=== PATIENT | male | born 1970 | race Two or more races ===

== ENCOUNTER 2017-10-26 08:04 | Emergency (ER) | payer SELFPAY ==
[2017-10-26] MEDS ORDERED: IBUPROFEN 800 MG TABLET PO ONE (08:27)
[2017-10-26] MEDS ORDERED: NORMAL SALINE 1000 ML 1,000 ML IV ONE (08:27)
[2017-10-26 08:45] LABS: ABSOLUTE BASOPHILS # (AUTO) 0.1 10^3/uL (0.0-0.2); ABSOLUTE EOSINOPHILS # (AUTO) 0.1 10^3/uL (0.0-0.6); ABSOLUTE LYMPHOCYTES (AUTO) 2.5 10^3/uL (0.5-4.7); ABSOLUTE MONOCYTES (AUTO) 0.6 10^3/uL (0.1-1.4); ABSOLUTE NEUT (AUTO) 6.1 10^3/uL (1.7-8.2); BASOPHILS % (AUTO) 1.2 % (0-2); EOSINOPHILS % (AUTO) 1.1 % (0-6); HEMATOCRIT 41.9 % (37.9-51.0); HEMOGLOBIN 14.2 g/dL (13.5-17.0); LYMPHOCYTES % (AUTO) 26.7 % (13-45); MEAN CORPUSCULAR HEMOGLOBIN 30.3 pg (27.0-33.4); MEAN CORPUSCULAR HGB CONC 33.8 g/dL (32.0-36.0); MEAN CORPUSCULAR VOLUME 90 fl (80-97); MONOCYTES % (AUTO) 6.5 % (3-13); PLATELET COUNT 463 10^3/uL (150-450); RED BLOOD COUNT 4.68 10^6/uL (4.35-5.55); RED CELL DISTRIBUTION WIDTH 16.5 % (11.5-14.0); SEGMENTED NEUTROPHILS % (AUTO) 64.5 % (42-78); TOTAL CELLS COUNTED % (AUTO) 100 %; WHITE BLOOD COUNT 9.4 10^3/uL (4.0-10.5)
[2017-10-26 09:02] LABS: ALANINE AMINOTRANSFERASE 33 U/L (21-72); ALBUMIN 4.8 g/dL (3.5-5.0); ALKALINE PHOSPHATASE 107 U/L (38-126); ANION GAP 13 (5-19); ASPARTATE AMINO TRANSFERASE 27 U/L (17-59); BILIRUBIN,DIRECT 0.3 mg/dL (0.0-0.4); BILIRUBIN,TOTAL 0.3 mg/dL (0.2-1.3); BLOOD UREA NITROGEN 15 mg/dL (7-20); CALCIUM 9.6 mg/dL (8.4-10.2); CARBON DIOXIDE 26 mmol/L (22-30); CHLORIDE 108 mmol/L (98-107); GLUCOSE 94 mg/dL (75-110); POTASSIUM 4.4 mmol/L (3.6-5.0); SODIUM 147.2 mmol/L (137-145); TOTAL PROTEIN 9.1 g/dL (6.3-8.2)
[2017-10-26] MEDS ORDERED: TETRACAINE HCL 0.5% OPH SOLN 2 ML OD ONE (09:15)
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
[2017-10-26 10:22] VITALS: BP 131/79
== END 2017-10-26 10:22 | disposition home or self-care (01) ==
LOC: ER 08:04
DX: R51 Headache (principal); Z21 Asymptomatic human immunodeficiency virus [HIV] infection status; Z98.890 Other specified postprocedural states; Z91.013 Allergy to seafood
CPT/HCPCS: 99284; 96360; 36415; 85025; 80053; J7030

== ENCOUNTER 2018-01-28 23:51 | Emergency (ER) | payer SELFPAY ==
[2018-01-29] MEDS ORDERED: FUROSEMIDE INJ/PF 20 MG/2 ML SDV IV ONE (01:32)
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
[2018-01-29 02:17] LABS: ABSOLUTE EOSINOPHILS # (AUTO) 0.2 10^3/uL (0.0-0.6); ABSOLUTE LYMPHOCYTES (AUTO) 2.9 10^3/uL (0.5-4.7); ABSOLUTE MONOCYTES (AUTO) 0.9 10^3/uL (0.1-1.4); ABSOLUTE NEUT (AUTO) 5.3 10^3/uL (1.7-8.2); BASOPHILS % (AUTO) 0.4 % (0-2); EOSINOPHILS % (AUTO) 1.8 % (0-6); HEMATOCRIT 34.1 % (37.9-51.0); HEMOGLOBIN 11.2 g/dL (13.5-17.0); MEAN CORPUSCULAR HEMOGLOBIN 29.5 pg (27.0-33.4); MEAN CORPUSCULAR HGB CONC 32.8 g/dL (32.0-36.0); MEAN CORPUSCULAR VOLUME 90 fl (80-97); MONOCYTES % (AUTO) 9.5 % (3-13); PLATELET COUNT 511 10^3/uL (150-450); RED BLOOD COUNT 3.79 10^6/uL (4.35-5.55); RED CELL DISTRIBUTION WIDTH 17.3 % (11.5-14.0); SEGMENTED NEUTROPHILS % (AUTO) 57.3 % (42-78); TOTAL CELLS COUNTED % (AUTO) 100 %; WHITE BLOOD COUNT 9.3 10^3/uL (4.0-10.5)
[2018-01-29 02:31] LABS: ALANINE AMINOTRANSFERASE 34 U/L (21-72); ALBUMIN 4.2 g/dL (3.5-5.0); ALKALINE PHOSPHATASE 97 U/L (38-126); ANION GAP 17 (5-19); ASPARTATE AMINO TRANSFERASE 35 U/L (17-59); BILIRUBIN,DIRECT 0.3 mg/dL (0.0-0.4); BILIRUBIN,TOTAL 0.3 mg/dL (0.2-1.3); BLOOD UREA NITROGEN 11 mg/dL (7-20); CALCIUM 9.5 mg/dL (8.4-10.2); CARBON DIOXIDE 23 mmol/L (22-30); CHLORIDE 107 mmol/L (98-107); CREATINE KINASE 174 U/L (55-170); GLUCOSE 90 mg/dL (75-110); POTASSIUM 3.7 mmol/L (3.6-5.0); SODIUM 147.2 mmol/L (137-145); TOTAL PROTEIN 7.1 g/dL (6.3-8.2)
[2018-01-29 02:43] LABS: CREATINE KINASE MB 0.85 ng/mL (<4.55); NT PRO BNP 143 pg/mL (<125)
[2018-01-29 02:47] LABS: TROPONIN I < 0.012 ng/mL
--- NOTE | 2018-01-29 02:56 | RADIOLOGY REPORT (SQ) ---
EXAM DESCRIPTION: XR CHEST 2 VIEWS COMPLETED DATE/TME: 01/29/2018 01:32 CLINICAL HISTORY: 48 years Male, sob COMPARISON: None. FINDINGS: Increased lung volume, clear parenchyma, normal cardiac silhouette, and partially imaged lower cervical hardware. IMPRESSION: No acute cardiopulmonary findings.
[2018-01-29 03:51] VITALS: BP 104/66
--- NOTE | 2018-01-29 22:02 | EKG REPORT ---
SEVERITY:- NORMAL ECG - SINUS RHYTHM : Confirmed by: Jory Coffey 29-Jan-2018 22:01:37
== END 2018-01-29 03:51 | disposition home or self-care (01) ==
LOC: ER 23:51
DX: R60.9 Edema, unspecified (principal); R06.09 Other forms of dyspnea; B20 Human immunodeficiency virus [HIV] disease; F17.210 Nicotine dependence, cigarettes, uncomplicated; Z91.14 Patient's other noncompliance with medication regimen; Z91.013 Allergy to seafood
CPT/HCPCS: 93005; 99406; 99284; 36415; 82553; 82550; 85025; 80053; 84484; 83880; 71046; 93010; J1940

== ENCOUNTER 2018-06-21 21:01 | Emergency (ER) | payer OTHER ==
[2018-06-21 21:10] VITALS: BP 138/96
[2018-06-21] MEDS ORDERED: TETRACAINE HCL 0.5% OPH SOLN 4 ML OD ONE (21:22)
[2018-06-21] MEDS ORDERED: POLYMYXIN B SULFATE/TMP OPH SOLN (10 ML/ER DISP) OD ONE (22:13)
--- NOTE | 2018-06-21 22:18 | ER Document Report ---
ED Eye Complaint - General Chief Complaint: Eye Injury Stated Complaint: EYE INJURY Time Seen by Provider: 06/21/18 21:22 Notes: Patient is a 48-year-old male presents to the emergency department for a foreign body sensation in his right eye. Patient states he was outside chopping wood and potentially a piece flew back and hit his right eye. Patient states he flushed his eye with copious amounts of water but still is in a lot of pain whic h is why he presents to the emergency room. Patient states he typically wears glasses and has not been to the [place] in over a year. Patient denies any use of contacts. Patient states he was not wearing his glasses when this incident happened, no concern for glass foreign body. Patient currently does not have his glasses with him in the emergency room Past medical history: Asthma, neuropathy Medications: BuSpar, amitriptyline, Lyrica Allergies: Sulfa TRAVEL OUTSIDE OF THE U.S. IN LAST 30 DAYS: No - Related Data Allergies/Adverse Reactions: shellfish Allergy (Uncoded 10/26/17 08:44) Past Medical History - General Information source: Patient - Social History Smoking Status: Unknown if Ever Smoked Family History: Reviewed & Not Pertinent, Other - HIV- Spouse Patient has suicidal ideation: No Patient has homicidal ideation: No Pulmonary Medical History: Reports: Hx Asthma Neurological Medical History: Reports: Hx Cerebrovascular Accident Renal/ Medical History: Denies: Hx Peritoneal Dialysis Psychiatric Medical History: Reports: Hx Bipolar Disorder Infectious Medical History: Reports: Hx HIV Past Surgical History: Reports: Hx Orthopedic Surgery Review of Systems - Review of Systems Constitutional: No symptoms reported Cardiovascular: No symptoms reported Respiratory: No symptoms reported Gastrointestinal: No symptoms reported Genitourinary: No symptoms reported Male Genitourinary: No symptoms reported Musculoskeletal: No symptoms reported Skin: No symptoms reported Hematologic/Lymphatic: No symptoms reported Neurological/Psychological: No symptoms reported Physical Exam - Vital signs Vitals: Temp Pulse Resp BP Pulse Ox 97.9 F 88 18 138/96 H 99 06/21/18 21:08 06/21/18 21:08 06/21/18 21:08 06/21/18 21:08 06/21/18 21:08 - Notes Notes: GENERAL: Alert, interacts well. No acute distress. HEAD: Normocephalic, atraumatic. EYES: Pupils equal, round, and reactive to light. Extraocular movements intact. Minor swelling noted to the right upper lid. No proptosis noted. ENT: Oral mucosa moist, tongue midline. NECK: Full range of motion. Supple. Trachea midline. LUNGS: Clear to auscultation bilaterally, no wheezes, rales, or rhonchi. No respiratory distress. HEART: Regular rate and rhythm. No murmur ABDOMEN: Soft, non-tender. Non-distended. Bowel sounds present in all 4 quadrants. EXTREMITIES: Moves all 4 extremities spontaneously. No edema, normal radial and dorsalis pedis pulses bilaterally. No cyanosis. BACK: no cervical, thoracic, lumbar midline tenderness. No saddle anesthesia, normal distal neurovascular exam. NEUROLOGICAL: Alert and oriented x3. Normal speech. cranial nerves II through XII grossly intact PSYCH: Normal affect, normal mood. SKIN: Warm, dry, normal turgor. No rashes or lesions noted. - HEENT Visual acuity- Right eye: 20/50 Visual acuity- Left eye: 20/50 Visual acuity- Both eyes: 20/50 Corrective lenses worn: No - pt does not have corrective lenses with him. Course - Re-evaluation Re-evalutation: 06/21/18 23:38 Floor seen stain did reveal a corneal abrasion at 11:00 over the patient's outer iris. Patient's right eyelid was flipped and there were no foreign bodies seen. Discussed close follow-up with ophthalmology, phone numbers will be provided. Close return precautions discussed. - Vital Signs Vital signs: Temp Pulse Resp BP Pulse Ox 97.9 F 88 18 138/96 H 99 06/21/18 21:08 06/21/18 21:08 06/21/18 21:08 06/21/18 21:08 06/21/18 21:08 Discharge - Discharge Clinical Impression: Corneal abrasion Qualifiers: Encounter type: initial encounter Laterality: right Qualified Code(s): S05.01XA - Injury of conjunctiva and corneal abrasion without foreign body, right eye, initial encounter Condition: Stable Disposition: HOME, SELF-CARE Prescriptions: Polymyxin B Sulf/Trimethoprim [Polytrim Eye Drops] 1 drop OD Q3H 7 Days #10 ml Referrals: JILL MUSA DO [ACTIVE STAFF] - Follow up as needed [facility] [Provider Group] - Follow up as needed
== END 2018-06-21 22:29 | disposition home or self-care (01) ==
LOC: ER 21:01
DX: S05.01XA Injury of conjunctiva and corneal abrasion without foreign body, right eye, initial encounter (principal); W20.8XXA Other cause of strike by thrown, projected or falling object, initial encounter; Y99.0 Civilian activity done for income or pay
CPT/HCPCS: 99283; J3490 ×2

== ENCOUNTER 2018-09-08 00:25 | Emergency (ER) | payer SELFPAY ==
--- NOTE | 2018-09-08 01:51 | ER Document Report ---
ED Medical Screen (RME) - General Chief Complaint: Flu Symptoms Stated Complaint: FLU SYMPTOMS Time Seen by Provider: 09/08/18 01:46 Notes: Patient is a 48-year-old male presents to the emergency department for generalized cough, congestion, subjective fever. Patient states he does have HIV and has been without his medications for 2 months now. Patient states he has not followed up since he moved to [place] because "[place]." States he has been able to fill any of his medications since he moved here 2 months ago. Patient states he wants something for "this," referring to his generalized cough and congestion because he is worried about his HIV. Patient is unable to tell staff what his last cell count was. GENERAL: Alert, interacts well. No acute distress. LUNGS: Clear to auscultation bilaterally, no wheezes, rales, or rhonchi. No respiratory distress. HEART: Regular rate and rhythm. No murmur I have greeted and performed a rapid initial assessment of this patient. A comprehensive ED assessment and evaluation of the patient, analysis of test results and completion of the medical decision making process will be conducted by additional ED providers. TRAVEL OUTSIDE OF THE [place] IN LAST 30 DAYS: No - Related Data Allergies/Adverse Reactions: shellfish Allergy (Uncoded 10/26/17 08:44) Past Medical History Pulmonary Medical History: Reports: Hx Asthma Neurological Medical History: Reports: Hx Cerebrovascular Accident Renal/ Medical History: Denies: Hx Peritoneal Dialysis Psychiatric Medical History: Reports: Hx Bipolar Disorder Infectious Medical History: Reports: Hx HIV Past Surgical History: Reports: Hx Orthopedic Surgery Physical Exam - Vital signs Vitals: Temp Pulse Resp BP Pulse Ox 98.5 F 93 18 141/96 H 97 09/08/18 01:36 09/08/18 01:36 09/08/18 01:36 09/08/18 01:36 09/08/18 01:36 Course - Vital Signs Vital signs: Temp Pulse Resp BP Pulse Ox 98.5 F 93 18 141/96 H 97 09/08/18 01:36 09/08/18 01:36 09/08/18 01:36 09/08/18 01:36 09/08/18 01:36
--- NOTE | 2018-09-08 02:30 | RADIOLOGY REPORT (SQ) ---
EXAM DESCRIPTION: XR CHEST 2 VIEWS COMPLETED DATE/TME: 09/08/2018 01:48 CLINICAL HISTORY: 48 years, Male, cough/fever COMPARISON: 01/29/2018 chest NUMBER OF VIEWS: 2 TECHNIQUE: 2 view chest LIMITATIONS: None. FINDINGS: Heart size normal. Lungs are hyperinflated but clear. No pneumothorax IMPRESSION: Underlying hyperinflation. Lungs are clear copyright 2010 [employer]- All Rights Reserved
[2018-09-08 04:24] LABS: ABSOLUTE BASOPHILS # (AUTO) 0.1 10^3/uL (0.0-0.2); ABSOLUTE EOSINOPHILS # (AUTO) 0.1 10^3/uL (0.0-0.6); ABSOLUTE LYMPHOCYTES (AUTO) 2.6 10^3/uL (0.5-4.7); ABSOLUTE MONOCYTES (AUTO) 0.9 10^3/uL (0.1-1.4); ABSOLUTE NEUT (AUTO) 6.5 10^3/uL (1.7-8.2); BASOPHILS % (AUTO) 1.3 % (0-2); EOSINOPHILS % (AUTO) 1.1 % (0-6); HEMATOCRIT 42.9 % (37.9-51.0); HEMOGLOBIN 14.2 g/dL (13.5-17.0); LYMPHOCYTES % (AUTO) 25.3 % (13-45); MEAN CORPUSCULAR HEMOGLOBIN 28.9 pg (27.0-33.4); MEAN CORPUSCULAR HGB CONC 33.1 g/dL (32.0-36.0); MEAN CORPUSCULAR VOLUME 87 fl (80-97); MONOCYTES % (AUTO) 8.7 % (3-13); PLATELET COUNT 417 10^3/uL (150-450); RED BLOOD COUNT 4.92 10^6/uL (4.35-5.55); RED CELL DISTRIBUTION WIDTH 17.6 % (11.5-14.0); SEGMENTED NEUTROPHILS % (AUTO) 63.6 % (42-78); TOTAL CELLS COUNTED % (AUTO) 100 %; WHITE BLOOD COUNT 10.2 10^3/uL (4.0-10.5)
[2018-09-08 04:45] LABS: A TYPE INFLUENZA AG NEGATIVE (NEGATIVE); B INFLUENZA AG NEGATIVE (NEGATIVE)
[2018-09-08 05:12] LABS: ALANINE AMINOTRANSFERASE 23 U/L (21-72); ALBUMIN 4.8 g/dL (3.5-5.0); ALKALINE PHOSPHATASE 127 U/L (38-126); ANION GAP 14 (5-19); ASPARTATE AMINO TRANSFERASE 35 U/L (17-59); BILIRUBIN,DIRECT 0.4 mg/dL (0.0-0.4); BILIRUBIN,TOTAL 0.5 mg/dL (0.2-1.3); BLOOD UREA NITROGEN 10 mg/dL (7-20); CALCIUM 9.9 mg/dL (8.4-10.2); CARBON DIOXIDE 27 mmol/L (22-30); CHLORIDE 99 mmol/L (98-107); GLUCOSE 103 mg/dL (75-110); POTASSIUM 4.9 mmol/L (3.6-5.0); SODIUM 140.2 mmol/L (137-145); TOTAL PROTEIN 9.4 g/dL (6.3-8.2)
--- NOTE | 2018-09-08 05:39 | ER Document Report ---
HPI - HPI Patient complains to provider of: Cough and congestion Time Seen by Provider: 09/08/18 01:46 Pain Level: Denies Context: Patient is a 48-year-old male presents to the emergency department for generalized cough, congestion, subjective fever. Patient states he does have HIV and has been without his medications for 2 months now. Patient states he has not followed up since he moved to [place] because "[place]." States he has been unable to fill any of his medications since he moved here 2 months ago. Patient states he wants something for "this," referring to his generalized cough and congestion because he is worried about his HIV. Patient is unable to tell staff what his last cell count was. - DERM Skin Color: Normal Past Medical History - General Information source: Patient - Social History Smoking Status: Current Every Day Smoker Family History: Reviewed & Not Pertinent, Other - HIV- Spouse Patient has suicidal ideation: No Patient has homicidal ideation: No Pulmonary Medical History: Reports: Hx Asthma Neurological Medical History: Reports: Hx Cerebrovascular Accident Renal/ Medical History: Denies: Hx Peritoneal Dialysis Psychiatric Medical History: Reports: Hx Bipolar Disorder Infectious Medical History: Reports: Hx HIV Past Surgical History: Reports: Hx Orthopedic Surgery Vertical Provider Document - CONSTITUTIONAL Agree With Documented VS: Yes Notes: GENERAL: Alert, interacts well. No acute distress. HEAD: Normocephalic, atraumatic. No frontal or maxillary sinus tenderness noted EYES: Pupils equal, round, and reactive to light. Extraocular movements intact. ENT: Oral mucosa moist, tongue midline. Nares patent,, TM's intact, nonerythematous, nonbulging bilaterally. Pharynx within normal limits no palatal petechiae or exudate noted NECK: Full range of motion. Supple. Trachea midline. No lymphadenopathy appreci ated LUNGS: Clear to auscultation bilaterally, no wheezes, rales, or rhonchi. No respiratory distress. HEART: Regular rate and rhythm. No murmur ABDOMEN: Soft, non-tender. Non-distended. Bowel sounds present in all 4 quadrants. EXTREMITIES: Moves all 4 extremities spontaneously. No edema, normal radial and dorsalis pedis pulses bilaterally. No cyanosis. BACK: no cervical, thoracic, lumbar midline tenderness. No saddle anesthesia, normal distal neurovascular exam. NEUROLOGICAL: Alert and oriented x3. Normal speech. cranial nerves II through XII grossly intact. PSYCH: Normal affect, normal mood. SKIN: Warm, dry, normal turgor. No rashes or lesions noted. - INFECTION CONTROL TRAVEL OUTSIDE OF THE [place] IN LAST 30 DAYS: No Course - Re-evaluation Re-evalutation: Patient's labs show no signs of leukocytosis, no signs of anemia, No signs of electrolyte abnormalities, patient's influenza testing was negative, chest x-ray reveals no signs of pneumonia, pneumothorax, rib fracture. Discussed likely viral diagnosis with patient at bedside discussed close follow-up with [facility] to get back on his antiviral medications. Close return precautions discussed. Patient stable for discharge. - Vital Signs Vital signs: Temp Pulse Resp BP Pulse Ox 98.5 F 93 18 141/96 H 97 09/08/18 01:36 09/08/18 01:36 09/08/18 01:36 09/08/18 01:36 09/08/18 01:36 - Laboratory Result Diagrams: 09/08/18 04:14 09/08/18 04:14 Laboratory results interpreted by me: 09/08/18 09/08/18 04:14 04:14 RDW 17.6 H Alkaline Phosphatase 127 H Total Protein 9.4 H Discharge - Discharge Clinical Impression: Upper respiratory infection Qualifiers: URI type: unspecified viral URI Qualified Code(s): J06.9 - Acute upper respiratory infection, unspecified Condition: Stable Disposition: HOME, SELF-CARE Instructions: Upper Respiratory Illness ([facility]), Viral Syndrome ([facility]) Additional Instructions: As we discussed you have been seen and treated in the emergency department for an upper respiratory infection. These are typically caused by viruses and do not respond to antibiotics. Please make sure you take [id number] Tylenol and Motrin for generalized body aches, fevers, chills. Please stay well- hydrated. Please return to the emergency room for any other concerning symptoms. In this paperwork I have provided you with phone numbers for [facility]. This is a clinic you can go to if you do not have insurance to get back on your antiviral medications for HIV. Please make sure you follow-up with them. Prescriptions: Benzonatate [Tessalon Perles 100 mg Capsule] 100 mg PO [id number] PRN #40 capsule PRN Reason: Referrals: [facility] [Provider Group] - Follow up as needed
[2018-09-08 06:02] VITALS: BP 140/82
== END 2018-09-08 06:02 | disposition home or self-care (01) ==
LOC: ER 00:25
DX: J06.9 Acute upper respiratory infection, unspecified (principal); R05 Cough; R09.81 Nasal congestion; R50.9 Fever, unspecified; B20 Human immunodeficiency virus [HIV] disease; F17.200 Nicotine dependence, unspecified, uncomplicated
CPT/HCPCS: 36415; 71046; 80053; 85025; 87804; 99284